=== PATIENT | female | born 2000 | race Two or more races ===

== ENCOUNTER 2021-08-13 16:12 | Emergency (ER) | payer MEDICAID, SELFPAY ==
[~2021-08-13] VITALS: Ht 162.6 cm; Wt 52.3 kg
[2021-08-13 16:17] VITALS: BP 123/68
[2021-08-13 16:50] LABS: COVID AG,FIA SOURCE NASOPHARYNGEAL
== END 2021-08-13 17:47 | disposition home or self-care (01) ==
LOC: EMS 16:14
DX: Z20.822 Contact with and (suspected) exposure to COVID-19 (principal)
CPT/HCPCS: 99283